=== PATIENT | female | born 1955 | race Caucasian/White ===

== ENCOUNTER 2021-09-17 12:30 | Outpatient (RCR) | payer MEDICARE, BC, SELFPAY | END 2022-09-02 11:14 | disposition home or self-care (01) | PROVIDERS: PCP Family Medicine; Visit Provider Physician Assistant Medical | DX: M79.645 Pain in left finger(s) (principal); M20.002 Unspecified deformity of left finger(s); Z51.89 Encounter for other specified aftercare | CPT/HCPCS: 97035; 97110; X5282 ==

== ENCOUNTER 2021-11-06 04:38 | Emergency (ER) | payer MEDICARE, BC, SELFPAY ==
[2021-11-06 04:49] VITALS: BP 127/74; PULSE 69; RESP 20; TEMP 36.6; O2SAT 99; BMI 17.4
--- NOTE | 2021-11-06 05:26 | ED.DIZZY ---
HPI - Dizziness General Chief Complaint: Dizziness/Vertigo Stated Complaint: Vertigo, lightheaded, weak Time Seen by Provider: 11/06/21 04:43 Source: patient Mode of arrival: ambulatory Limitations: no limitations History of Present Illness HPI Narrative: Patient presents with a 1-1/2 hour history of weakness, feeling of room spinning sensation, buzzing in her head and feeling off balance. She had a similar episode she states 2 years ago that responded well to IV medication therapy in observation admission in the hospital. Review of the records shows that this was in June of 2020. Her symptoms resolved with rest, fluids, meclizine and lorazepam. She does state that she is prone to anxiety. She has been evaluated by her primary care provider recently as she does have some mild spells from time to time and has been diagnosed with the suspicion for Meniere's disease. She has been referred to an ear nose and throat provider, consult is pending next month. She does have a mild headache and has had 1 for a couple of days since receiving her last COVID booster. No trauma, no injury. Headache is diffuse, nonfocal. She tried taking 2 Tylenol for the headache this morning with no improvement in her vertigo symptoms. She has a notable history of a prior stroke following an episode of endocarditis 18 years ago. She subsequently now has a mechanical mitral valve and is anticoagulated on Coumadin long-term. No recent significant changes in her dose. Denies any other focal neurological changes besides the feeling off-balance. No vision changes, no speech changes, no difficulty moving her extremities, no confusion. This is confirmed with her . Denies cardiac symptoms, chest pain. CT scan and MRI were performed 15 months ago at her last similar presentation. These imaging studies, labs and notes are extensively reviewed. Past medical history is most notable for history of endocarditis with subsequent mitral valve replacement. Denies any other surgeries. Her long-term medications are estradiol with Prometrium and Coumadin. She states that she stopped her atorvastatin a couple of weeks ago. I suspect that this is noncontributory. Socially, no pertinent travel, illicit drug use or alcohol intake. Family history reviewed from the [facility] records. MD elicited complaint: vertigo and disequilibrium Pertinent past history: BPPV, stroke and Meniere's disease Related Data Home Medications Medication Instructions Recorded Confirmed atorvastatin 10 mg tablet 10 mg PO HS 11/06/21 11/06/21 estradiol 0.5 mg tablet 0.5 mg PO DAILY 11/06/21 11/06/21 progesterone micronized 100 mg 100 mg PO HS 11/06/21 11/06/21 capsule warfarin 2 mg tablet 2 mg PO DIRECTED 11/06/21 11/06/21 Previous Rx's Medication Instructions Recorded meclizine 12.5 mg tablet 12.5 - 25 mg PO TID PRN vertigo 11/06/21 #20 tabs Allergies Allergy/AdvReac Type Severity Reaction Status Date / Time No Known Drug Allergies Allergy Verified 11/06/21 05:26 Review of Systems Narrative: Notable for the generalized and neurological symptoms as above, otherwise denies times 12 systems. [facility] Medical History Acute and subacute bacterial endocarditis Anticoagulation goal of INR 2.5 to 3.5 Anxiety History of vertigo Hyperlipidemia Lacunar stroke Migraine Tinnitus TMJ (dislocation of temporomandibular joint) Surgical History H/O mitral valve replacement History of nasal septoplasty Social History Smoking Status: Never smoker Do you use any of these nicotine containing products: None How often do you have a drink containing alcohol: never AUDIT-C Alcohol total score: 0 Non-prescribed substance use: denies use Exam Const: Vital Signs, click to edit/add: Vital Signs - 24 hr 11/06/21 04:49 11/06/21 05:45 11/06/21 05:40 Temperature 97.9 F Pulse Rate [Left P ulse Oximeter] 69 71 Respiratory Rate 20 20 Blood Pressure [Le ft Upper Arm] 127/74 131/64 Pulse Oximetry 99 98 98 Oxygen Delivery Me thod Room Air Room Air 11/06/21 06:42 11/06/21 07:01 Temperature 97.9 F Pulse Rate [Left P ulse Oximeter] 66 66 Respiratory Rate 20 20 Blood Pressure [Le ft Upper Arm] 124/54 L 128/62 Pulse Oximetry 98 Oxygen Delivery Me thod Room Air Documenting provider has reviewed patient's vital signs: yes Common normals: no apparent distress and average body habitus General appearance: well kempt Orientation/consciousness: Yes awake, Yes oriented to person, Yes oriented to place and Yes oriented to time; not confused HENMT: Common normals: normocephalic and TM's normal bilaterally Head and scalp: normocephalic Face and sinus: normal facial exam Tympanic membrane: TM's normal bilaterally Mouth: oral and palatal mucosa normal Throat: posterior oropharynx normal Eye: Common normals: PERRL, conjunctivae normal and no scleral icterus Conjunctiva: conjunctiva(e) normal Pupil: PERRL Other: Mild nystagmus to the right, mostly horizontal with a slight rotational aspect. Neck & C-Spine: Common normals: full ROM and no lymphadenopathy Resp: Common normals: normal respiratory effort and clear to auscultation bilaterally Auscultation: clear to auscultation bilaterally Cardio: Common normals: regular rate, regular rhythm, S1 normal heart sound, S2 normal heart sound and peripheral pulses 2+ throughout Rate: regular rate Rhythm: regular rhythm Heart sounds: S1 normal and S2 normal Peripheral pulses: pulses 2+ throughout Other: Mitral murmur consistent with known history of mechanical valve, no leakage sounds GI: Common normals: Normal to inspection, nondistended, normoactive bowel sounds present, soft to palpation, non-tender, no hepatosplenomegaly and no masses Palpation: soft and no hepatosplenomegaly Extremity: General: no deformity and no edema Neuro: Common normals: CN's II-XII intact bilaterally, moves all extremities, no focal motor deficits and no sensory deficits noted Sensorium/orientation: awake, oriented to person, oriented to place and oriented to time Speech: speech normal Motor exam: no tremor noted Other: Maxim-Hallpike maneuver localizes to right ear. Psych: Appearance: well kempt Attitude: engaged Mood and affect: anxious (Mild) Memory/cognition: memory grossly intact Insight: insight good Judgement: judgment good Skin: Common normals: no rashes or lesions noted General skin exam: no rashes or lesions noted Course Vital Signs Vital signs: Initial Vital Signs Temperature 97.9 F 11/06/21 04:49 Temperature Source Temporal Artery Scan 11/06/21 04:49 Pulse Rate 69 11/06/21 04:49 Pulse Rhythm 11/06/21 04:49 Respiratory Rate 20 11/06/21 04:49 Blood Pressure 127/74 09/22/22 04:49 Blood Pressure Mean 91 11/06/21 04:49 Blood Pressure Position Sitting 11/06/21 04:49 Pulse Oximetry 99 11/06/21 04:49 Oxygen Delivery Method 11/06/21 04:49 Vital Signs Temperature 97.9 F 11/06/21 04:49 Pulse Rate 69 11/06/21 04:49 Respiratory Rate 20 11/06/21 04:49 Blood Pressure 127/74 11/06/21 04:49 Pulse Oximetry 99 11/06/21 04:49 Oxygen Delivery Method 11/06/21 04:49 Temperature 97.9 F 11/06/21 07:01 Pulse Rate 66 11/06/21 07:01 Respiratory Rate 20 11/06/21 07:01 Blood Pressure 128/62 11/06/21 07:01 Pulse Oximetry 98 11/06/21 06:42 Oxygen Delivery Method 11/06/21 06:42 MDM - Dizziness MDM Narrative Medical decision making narrative: Discussed differential diagnosis with family including benign positional vertigo, Meniere's disease, stroke, intracranial hemorrhage, labyrinthitis, vestibular neuritis, cardiogenic or behavioral health disorder. Reviewed patient's allergy to prednisone as a mild side effect only. Reviewed previous treatments that were successful for her. Recommended a combination of IV fluid, meclizine, dexamethasone, lorazepam, Zofran. Discussed risks and benefits of repeating cranial imaging. Will check INR, if she does not respond to medication, would recommend CT scan of the head. Laboratory studies pending. Patient agreeable with initial conservative management. Re-examined patient at 6:15 a.m., 30 minutes after medications. She is feeling markedly better. Because of this, I do not recommend additional neurological workup and she is in agreement. Will ambulate patient around in 30 minute and if she does well, we will plan to discharge home. We did discuss continued use of meclizine for the next 24 hours and light activity for today. Alarm symptoms for ED presentation that would warrant additional imaging are reviewed. Her reassuring lab studies were reviewed as well. Medical Records Attestation: I reviewed the patient's medical records. Lab Data Attestation: I reviewed the patient's lab results. Labs: Lab Results 11/06/21 11/06/21 11/06/21 Range/Units 05:29 05:33 05:37 WBC 4.30 L (4.50-11.00) K/uL RBC 4.36 (4.00-5.20) m/uL Hgb 13.0 (12.0-16.0) gm/dL Hct 38.5 (33.0-51.0) % MCV 88 (80-100) fL MCH 30 (26-34) pg MCHC 34 (32-36) gm/dL RDW Coeff of Dajuan 13.1 (11.5-15.5) % Plt Count 209 (140-440) K/uL Neut % (Auto) 60.9 (42.0-72.0) % Lymph % (Auto) 21.9 (20-44) % Chester % (Auto) 12.1 H (0.0-11.0) % Eos % (Auto) 3.7 (0.0-7.0) % Baso % (Auto) 1.4 (0.0-3.0) % Neut # (Auto) 2.60 (1.7-7.0) K/uL Lymph # (Auto) 0.90 (0.90-2.90) K/uL Chester # (Auto) 0.50 (0.00-0.90) K/UL Eos # (Auto) 0.20 (0.00-0.50) K/uL Baso # (Auto) 0.10 (0.00-0.30) K/uL Abs Immat Gran (auto) 0.00 (0.00-0.30) K/uL INR 2.97 H (0.91-1.10) Sodium (135-149) mmol/L Potassium (3.6-5.1) mmol/L Chloride (96-114) mmol/L Carbon Dioxide (20-32) mmol/L BUN (7-30) mg/dL Creatinine (0.5-1.5) mg/dL Estimated Creat Clear Estimated GFR ml/min Glucose (60-115) mg/dL Calcium (8.4-10.6) mg/dL Urine Color (Yellow) Urine Appearance (Clear) Urine pH (5.0-8.5) Ur Specific Treadwell (1.000-1.030) Urine Protein (Negative) Urine Glucose (UA) (Negative) Urine Ketones (Negative) Urine Blood (Negative) Urine Nitrite (Negative) Urine Bilirubin (Negative) Urine Urobilinogen (0.2-1.0) Ur Leukocyte Esterase (Negative) Urine RBC (0-2) Urine WBC (0-5) Ur Squamous Epith Cells (None-Few) Amorphous Sediment (None) Urine Bacteria (None) POC Troponin I 0.00 L (0.01-0.04) ng/ml 11/06/21 11/06/21 Range/Units 05:37 06:05 WBC (4.50-11.00) K/uL RBC (4.00-5.20) m/uL Hgb (12.0-16.0) gm/dL Hct (33.0-51.0) % MCV (80-100) fL MCH (26-34) pg MCHC (32-36) gm/dL RDW Coeff of Dajuan (11.5-15.5) % Plt Count (140-440) K/uL Neut % (Auto) (42.0-72.0) % Lymph % (Auto) (20-44) % Chester % (Auto) (0.0-11.0) % Eos % (Auto) (0.0-7.0) % Baso % (Auto) (0.0-3.0) % Neut # (Auto) (1.7-7.0) K/uL Lymph # (Auto) (0.90-2.90) K/uL Chester # (Auto) (0.00-0.90) K/UL Eos # (Auto) (0.00-0.50) K/uL Baso # (Auto) (0.00-0.30) K/uL Abs Immat Gran (auto) (0.00-0.30) K/uL INR (0.91-1.10) Sodium 137 (135-149) mmol/L Potassium 3.8 (3.6-5.1) mmol/L Chloride 107 (96-114) mmol/L Carbon Dioxide 25 (20-32) mmol/L BUN 19 (7-30) mg/dL Creatinine 0.6 (0.5-1.5) mg/dL Estimated Creat Clear 36.63 Estimated GFR 98 ml/min Glucose 92 (60-115) mg/dL Calcium 9.1 (8.4-10.6) mg/dL Urine Color Yellow (Yellow) Urine Appearance Cloudy A (Clear) Urine pH 7.5 (5.0-8.5) Ur Specific Treadwell 1.015 (1.000-1.030) Urine Protein Negative (Negative) Urine Glucose (UA) Negative (Negative) Urine Ketones Negative (Negative) Urine Blood Negative (Negative) Urine Nitrite Negative (Negative) Urine Bilirubin Negative (Negative) Urine Urobilinogen 0.2 (0.2-1.0) Ur Leukocyte Esterase Negative (Negative) Urine RBC 0-2 (0-2) Urine WBC 0-2 (0-5) Ur Squamous Epith Cells Few (None-Few) Amorphous Sediment Many A (None) Urine Bacteria Moderate A (None) POC Troponin I (0.01-0.04) ng/ml ECG Data Interpretation: Normal sinus rhythm with no significant ST or T-wave abnormalities. There are a few Pac complexes. Good R-wave progression with normal axis. Discharge Plan Discharge Clinical Impression: Benign paroxysmal positional vertigo Patient Disposition: Home w/ Parent or Adult Condition: Improved Instructions: Benign Paroxysmal Positional Vertigo (ED) Additional Instructions: There were no signs of neurological injury or heart problems today. Your physical exam was consistent with vertigo initiating in the right ear. Your symptoms improved significantly with our typical combination of medications. Because of this, I do not recommend that we repeat the CT scan and MRI that were performed last year. I would like for you to continue taking meclizine and rest for today. I will dose the meclizine at 12.5 mg every 8 hours, but you may increase it to 25 mg every 8 hours if this is more successful for you. I have chosen a half dose because of your petite frame. It may cause some dry mouth and constipation, feel free to use a stool softener if needed. Drink lots of fluids for the next couple of days. You were given a dose of dexamethasone which may increase your INR. Please have your INR rechecked on Wednesday. I would like for you to take 12.5 mg of meclizine this afternoon at about 2:00 p.m. and repeat at about 10:00 p.m.. Take another dose tomorrow morning upon awakening. After those 3 doses, you may then take the medication as needed if your still experiencing vertigo symptoms. It can be helpful to eat a diet that is a little higher in salt for the next couple of days to reduce your vertigo symptoms as well. Avoid alcohol and driving until your symptoms have been resolved for at least 24 hours. Come back to the emergency department if you are experiencing any neurological changes associated with the dizziness. Keep your appointment with the specialist for next month. Follow up with her primary care doctor early next week if your symptoms have not resolved. Activity Level: Light activity Discharge Diet: Regular Prescriptions: New meclizine 12.5 mg tablet 12.5 - 25 mg PO TID PRN (Reason: vertigo) Qty: 20 1RF No Action warfarin 2 mg tablet 2 mg PO DIRECTED Label Comments: TAKE BY MOUTH 4MG (2MG X 2 TABLETS) MON, WED AND FRI AND THEN 5MG (2MG X 2.5 TABLETS) ALL OTHER DAYS OR DIRECTED estradiol 0.5 mg tablet 0.5 mg PO DAILY Label Comments: TAKE 1 TABLET BY MOUTH ONCE DAILY progesterone micronized 100 mg capsule 100 mg PO HS Label Comments: TAKE 1 CAPSULE BY MOUTH AT BEDTIME atorvastatin 10 mg tablet 10 mg PO HS Label Comments: TAKE 1 TABLET BY MOUTH EVERYDAY AT BEDTIME Follow Up/Referrals: Shahrzad Rodrigez MD [Primary Care Provider] - Stand Alone Forms: [facility] Info Instructions
--- OUTSIDE RECORDS SUMMARY | 2021-11-06 05:36 | XMS_ITS | Clinical Summary ---
:1955 Author Organization [facility] [place] [address] Care Team Providers Name Role Phone Shahrzad Rodrigez MD Primary Care Provider Allergies Active Allergy Reactions Severity Noted Date Comments Cats (Fur, Dander, 01/22/2010 Saliva) Dog Dander Runny Nose 06/13/2018 Grass Pollen Other - Describe In 06/13/2018 Itchy ey es Comment Field Prednisone Anxiety 01/24/2007 became very hyp ed up Medications Medication Sig Dispensed Refills Start End Date Status Date amoxicillin Prior to 0 Active (AMOXIL) 500 mg procedures 9 capsule fluticasone (50 mcg INSTILL 2 48 mL 3 Active per actuation) SPRAYS INTO 1 nasal solution BOTH NOSTRILS (FLONASE)Indication ONCE DAILY. s: Allergic rhinitis, unspecified seasonality, unspecified trigger estradioL (ESTRACE) Take 1 Tablet 90 Tablet 3 Active 0.5 mg (0.5 mg) by 1 tabletIndications: mouth once Atrophic vaginitis, daily. Menopausal problem progesterone Take 1 Capsule 90 capsule. 3 Active micronized (100 mg) by 1 (PROMETRIUM) 100 mg mouth at capsuleIndications: bedtime. Atrophic vaginitis, Menopausal problem atorvastatin Take 1 Tablet 90 Tablet 0 Act karen (LIPITOR) 10 mg (10 mg) by 2 tabletIndications: mouth at Hyperlipidemia, bedtime. unspecified hyperlipidemia type warfarin (COUMADIN) Take by mouth 0 Active 2 mg 4 mg (2 mg x 2 tabletIndications: 2) every day Hx of mitral valve in the evening replacement with OR as directed mechanical valve, Anticoagulation monitoring, INR range 2.5-3.5 warfarin (COUMADIN) Take by mouth 0 Discontinued 2 mg 6 mg (2 mg x 2 22 (Other - add tabletIndications: 3) every Amisha; note to specify Hx of mitral valve 4 mg (2 mg x (E-cancel not replacement with 2) all other sent)) mechanical valve, days in the Anticoagulation evening OR as monitoring, INR directed range 2.5-3.5 Active Problems Problem Noted Date Lacunar stroke 08/28/2021 Overview: Found incidentally on CT. Advised to be on statin for secondary prevention and aim for blood pressure at 120/70 Protein-calorie malnutrition, unspecified severity Bilateral sensorineural hearing loss 02/05/2017 Dyspareunia in female 01/21/2017 Hyperlipidemia 01/21/2017 Otorrhagia of right ear 12/03/2016 Traumatic hematoma of right ear 12/03/2016 Anticoagulation monitoring, INR range 2.5-3.5 06/06/19 16 Osteopenia 12/21/2011 Hx of migraines 07/26/2011 Anxiety state, unspecified 07/26/2011 Leg pain 02/08/2011 Screen for colon cancer 06/06/2010 Overview: Colonoscopy 04/2010 normal repeat in 10 y ears Tinnitus of both ears 12/13/2008 Overview: Consult with ENT 2007 MRI 01/21 MITRAL VALVE DISEASES 07/27/2006 Hx of mitral valve replacement with mechanical valve 0 06/29/2006 Overview: Mitral valve replacement Personal history of surgery to heart and great vessels , presenting hazards 2003 to health Allergic rhinitis, cause unspecified Resolved Problems Problem Noted Date Resolved Date Anticoagulation monitoring, INR range 2.5-3.5 07/05/2013 05/29/2015 Anemia, unspecified 02/08/2011 01/21/2017 Elevated INR 02/08/2011 07/26/2011 Annual physical exam 12/15/2007 07/26/2011 Overview: LMP menopause Last Pap 12/09/06 Result WNL Last Mammo 01/14/07 Last Colonoscopy Never Last DEXA 06/17/04 Last Td 12/28/03 . Headache(784.0) 01/27/2007 12/13/2008 Headache(784.0) 01/27/2007 07/14/2012 Encounter for long-term (current) use of anticoagulants 06/1507/05/2013 Overview: Goal range 2.5 To 3.5 Other ill-defined and unknown causes of morbidity and mortal ity 05/30/2003 12/13/2008 Other and unspecified mitral valve diseases 07/14/2012 Encounters Date Type Specialty Care Team Description 10/27/2021 Office Visit Shahrzad Rodrigez Follow Up; Tatiana Chamorro MD Pressure; Medic ation Management; Con cerns (Light headedne ss, concerned for l ow BP) 10/27/2021 Anticoagulation 1, [facility] 10/27/2021 Travel 10/16/2021 Orders Only Lab, [facility] Antico[facility] 10/16/2021 Anticoagulation 1, [facility] 10/16/2021 Travel 10/05/2021 Orders Only Shahrzad Rodrigez <No scans attac hed> MD [place] 10/02/2021 Orders Only Lab, [facility] Antico[facility] 10/02/2021 Telephone Shahrzad Rodrigez Anticoagulation (PCP MD [place] Dose approval) 10/02/2021 Telephone Shahrzad Rodrigez Error-please юлия Chamorro MD (Signed by shivam burton) 10/02/2021 Anticoagulation 1, [facility] 10/02/2021 Travel 09/24/2021 Telephone Shahrzad Rodrigez Anticoagulation (Annual MD [place] re-enrollment ) 08/26/2021 Anticoagulation 1, [facility] 08/25/2021 Office Visit Shahrzad Rodrigez Ankle Pain/prob damon Chamorro MD (weakness, righ t ankle, rolling to righ t); Medication List Update ([facility] ) 08/25/2021 Orders Only Lab, [facility] Anticoagulation 08/25/2021 Travel from Last 3 Months Immunizations Name Administration Dates Next Due AMB Influenza, IIV4 PF (=>6 mos 11/14/2013 Flulaval,Fluzone Fluarix)(Flu Clinic Only) COVID-19 vaccine (Moderna 12/09/2020, 05/10/2020, 04/12/2020 100mcg/0.5mL) PF, MDV DT (Age < 7 years) 10/05/1985 Hepatitis B (Adult) 06/15/1996, 10/27/1995, 09/30/1995 Influenza A (H1N1), Inactivated 02/26/2009 Influenza, High-dose Inactivated 11/16/2018 Influenza, IIV3 (Age >=3 years) 11/27/2015, 11/26/2012, 05/2011, 11/20/2010, 12/12/2009, 12/12/2007, 11/19/2005, 12/12/2003, 11/16/2003 Influenza, IIV4 10/27/2016, 11/14/2013, 11/26/2012 Influenza, IIV4 (=>6mos) MDV 11/17/2017, 11/08/2014 Influenza, Inactivated AIIV4 (Age 65+ 10/28/2020, 10/30/2019 Years) Preserv Free Influenza, Intradermal Inactivated 11/20/2014, 11/19/2011 Pneumococcal Poly,23-Valent 01/29/2020, 11/21/2003 (Pneumovax) Pneumococcal conj 13-Valent (Prevnar 01/25/2019 13) Td (Age >=7 Years) 12/28/2003, 10/01/1994 Tdap 11/19/2011 Zoster (Shingrix-RZV, recombinant) 07/28/2018, 04/18/2018 Zoster (Zostavax-ZVL, live) 09/05/2013, 01/08/2013 Family History Medical History Relation Name Comments Arthritis Brother Cancer-prostate Father Osteoporosis Mother Stroke Mother Cancer-breast No Family History Cancer-ovarian No Family History Relation Name Status Comments Brother Father Mother Social History Tobacco Use Types Packs/Day Years Used Date Never Smoker Smokeless Tobacco: Never Used Tobacco Cessation: Counseling Given: Yes Alcohol Use Standard Drinks/Week Comments No 0 (1 standard drink = 0.6 oz pure alcoho l) Sex Assigned at Date Recorded Not on file COVID-19 Exposure Response Date Recorded In the last 10 days, have you been in contact with No / Unsu re 10/27/2021 7:26 AM CDT someone who was confirmed or suspected to have Coronavirus/COVID-19? Obstetrics History Para Term AB IAB SAB Ectopic Multiple Living Live Births 0 0 0 0 0 0 0 0 0 Last Filed Vital Signs Vital Sign Reading Time Taken Comments Blood Pressure 117/70 10/27/2021 7:40 AM CDT Pulse 89 10/27/2021 7:40 AM CDT Temperature 36.7 ??C (98 ??F) 07/10/2021 8:52 AM CDT Respiratory Rate 14 11/27/2020 1:32 PM CDT Oxygen Saturation 100% 10/27/2021 7:33 AM CDT Inhaled Oxygen Concentration - - Weight 43.5 kg (95 lb 14.4 oz) 10/27/2021 7:33 AM CDT Height 158.6 cm (5' 2.44) 08/25/2021 2:36 PM CDT Body Mass Index 17.29 08/25/2021 2:36 PM CDT Plan of Treatment Upcoming Encounters Date Type Specialty Care Team Description 11/11/2021 Orders Only Lab, [facility] 11/17/2021 Office Visit Pat Duron AuD [address] [place], [place] [address] (Wo rk) 11/17/2021 Office Visit Cristina Rivers PA [address] [place], [place] [address] (Wo rk) 02/02/2022 Office Visit Shahrzad Rodrigez MD [address] [facility] [id number] (Wo [facility]) Health Maintenance Due Date Last Done Comments Influenza for age 65+ 10/16/2021 10/28/2020, 10/30/2019, 11/16/2018, Additional history exists Tetanus booster 11/18/2021 11/19/2011, 12/28/2003, 10/01/1994 Depression screening for age 12+ 01/30/2022 01/30/2021, , 01/16/2021, Additional history exists Medicare Wellness for age 65+ 01/30/2022 01/30/2021, 2019, 01/25/2019 Mammogram for age 45-75 02/13/2022 02/13/2021, 01/29/2020, 01/25/2019, Additional history exists BMI (ht and wt on same day) for 08/25/2022 08/25/2021, 04/16, age 18+ 01/30/2021, Additional history exists Fecal testing sDNA-FIT (Cologuard) 10/04/2023 10/03/2020 for age 45-75 Lipids for age 45-75 10/02/2026 10/02/2021, 09/25/2020, 01/24/2018, Additional history exists Tdap Completed 11/19/2011 Zoster (shingles) series for age Completed 07/28/2018, 05/2018, 50+ 09/05/2013, Additional history exists DEXA/DXA scan for age 65+ Completed 12/04/2019, 02/02/2017 , 12/26/2013, Additional history exists Pneumococcal series for age 65+ Completed 01/29/2020, 01/15, 11/21/2003 Hepatitis C screening for age Completed 05/08/2021, 2018 18-79 COVID-19 vaccine series Completed 2021, 12/09/2020, 05/10/2020, Additional history exists Procedures Procedure Name Priority Date/Time Associated Diagnosis Comme nts CBC WITH AUTO Routine 10/27/2021 8:23 Intermittent Results for this DIFFERENTIAL AM CDT lightheadedness procedure ar e in the results section. COMP METABOLIC PANEL Routine 10/27/2021 8:23 Intermittent Resu lts for this AM CDT lightheadedness procedure ar e in the results section. CBC WITH AUTO Routine 10/27/2021 8:23 Intermittent Results for this DIFFERENTIAL AM CDT lightheadedness procedure ar e in the results section. PROTIME-INR STAT 10/27/2021 8:23 Hx of mitral valve Result s for this AM CDT replacement with procedure a re in mechanical valve the results section. INR,POCT Routine 10/16/2021 10:39 Hx of mitral valve Resul ts for this AM CDT replacement with procedure a re in mechanical valve the results section. LIPID PANEL W REFLEX Routine 10/02/2021 10:46 Hyperlipidemia, Results for this MEASURED LDL AM CDT unspecified procedure are i n hyperlipidemia type the resu lts section. HEPATIC FUNCTION Routine 10/02/2021 10:46 Hyperlipidemia, Resu lts for this PANEL AM CDT unspecified procedure are i n hyperlipidemia type the resu lts section. INR,POCT Routine 10/02/2021 10:45 Hx of mitral valve Resul ts for this AM CDT replacement with procedure a re in mechanical valve the results section. INR,POCT Routine 08/25/2021 2:17 Hx of mitral valve Result s for this PM CDT replacement with procedure a re in mechanical valve the results section. from Last 3 Months Results (ABNORMAL) CBC WITH AUTO DIFFERENTIAL (10/27/2021 8:23 AM CDT) [facility] Method Time Signature WHITE BLOOD 5.4 4.5 - 10/27/2021 [facility] COUNT 11.0 8:31 AM CDT [facility]/ CLINIC mm RED BLOOD COUNT 4.68 4.00 - 10/27/2021 [facility] 5.20 8:31 AM CDT [facility]/count includes the [facility] CLINIC HEMOGLOBIN 14.1 12.0 - 10/27/2021 [facility] 16.0 g/dL 8:31 AM T [facility] HEMATOCRIT 41.8 33.0 - 10/27/2021 [facility] 51.0 % 8:31 AM CDT [facility] MCV 89 80 - 100 10/27/2021 [facility] fL 8:31 AM CDT [facility] MCH 30.1 26.0 - 10/27/2021 [facility] 34.0 pg 8:31 AM CDT [facility] MCHC 33.7 32.0 - 10/27/2021 [facility] 36.0 g/dL 8:31 AM CDT [facility] RDW 14.3 11.5 - 10/27/2021 [facility] 15.5 % 8:31 AM CDT [facility] PLATELET COUNT 232 140 - 440 10/27/2021 [facility] thou/cu 8:31 AM CDT [facility] MPV 11.5 (H) 6.5 - 10/27/2021 [facility] 11.0 fL 8:31 AM CDT [facility] NEUTROPHILS 66.2 % 10/27/2021 [facility] 8:31 AM CDT [facility] LYMPHOCYTES 20.5 % 10/27/2021 [facility] 8:31 AM CDT [facility] MONOCYTES 9.8 % 10/27/2021 [facility] 8:31 AM CDT [facility] EOSINOPHILS 2.4 % 10/27/2021 [facility] 8:31 AM CDT [facility] BASOPHILS 1.1 % 10/27/2021 [facility] 8:31 AM CDT [facility] ABSOLUTE 3.6 1.7 - 7.0 10/27/2021 [facility] NEUTROPHILS thou/cu 8:31 AM CDT [facility] ABSOLUTE 1.1 0.9 - 2.9 10/27/2021 [facility] LYMPHOCYTES thou/cu 8:31 AM CDT [facility] ABSOLUTE 0.5 <0.9 10/27/2021 [facility] MONOCYTES thou/cu 8:31 AM CDT [facility] ABSOLUTE 0.1 <0.5 10/27/2021 [facility] EOSINOPHILS thou/cu 8:31 AM CDT [facility] ABSOLUTE 0.1 <0.3 10/27/2021 [facility] BASOPHILS thou/cu 8:31 AM CDT [facility] Specimen Anatomical Collection Method Collection Time Receive d Time (Source) Location / / Volume Laterality Blood BLOOD SPECIMEN / [facility] / 10/27/2021 8:23 AM 10/27 8:27 Unknown Unknown CDT AM CDT Shahrzad Rodrigez MD HEMATOLOGY Performing Organization Address City/State/ZIP Code Phon e Number [facility] [address] [place] [address] (ABNORMAL) PROTIME-INR (10/27/2021 8:23 AM CDT) P athologist Signature INR 3.6 (H) <1.3 10/27/2021 [facility] 2:18 PM CDT LABORATORY-[facility] PROTIME 34.0 (H) 12.0 - 13.8 10/27/2021 [facility] sec 2:18 PM CDT LABORATORY-[facility] LAB[facility] Specimen Anatomical Collection Method Collection Time Receive d Time (Source) Location / / Volume Laterality Blood BLOOD SPECIMEN / [facility]fly / 10/27/2021 8:23 AM 10/27 8:27 Unknown Unknown CDT AM CDT Narrative [facility] LAB[facility]AT[facility] - 10/27/2021 2:18 PM CDT ?Therapeutic Range 2.0-3.0 for most anticoagulated patients 2.5-3.5 or 4.0 for high risk patients The INR is only used for patients on sta ble oral anticoagulant therapy. It makes no significant contribution to the diagnosis or treatment of patients whose Protime is prolonged f or other reasons. INR results are increased when heparin l evels exceed 1.0 U/mL, which corresponds to an aPTT >125 seconds if the patient is on UFH. Shahrzad Rodrigez MD HEMATOLOGY Performing Organization Address City/State/ZIP Code Phon e Number [facility] [address] [place] [address] LABORATORY-[facility] [address] LAB[facility]AT[facility] (ABNORMAL) COMP METABOLIC PANEL (10/27/2021 8:23 AM CDT) Analysis Performed At Patho logist Time Signature SODIUM 140 135 - 145 10/27/2021 [facility] mmol/L 8:21 PM CDT [facility] POTASSIUM 4.1 3.5 - 5.0 10/27/2021 [facility] mmol/L 8:21 PM CDT [facility] CHLORIDE 107 98 - 110 10/27/2021 [facility] mmol/L 8:21 PM CDT [facility] CO2,TOTAL 26 21 - 31 10/27/2021 [facility] mmol/L 8:21 PM CDT [facility] ANION GAP 7 5 - 18 10/27/2021 [facility] 8:21 PM CDT [facility] GLUCOSE 86 65 - 100 10/27/2021 [facility] mg/dL 8:21 PM CDT [facility] CALCIUM 9.5 8.5 - 10.5 10/27/2021 [facility] mg/dL 8:21 PM CDT [facility] BUN 18 8 - 25 10/27/2021 [facility] mg/dL 8:21 PM CDT [facility] CREATININE 0.81 0.57 - 10/27/2021 [facility] 1.11 mg/dL 8:21 PM CDT [facility] BUN/CREAT RATIO 22 (H) 10 - 20 10/27/2021 [facility] 8:21 PM CDT [facility] ALBUMIN 4.3 3.2 - 4.6 10/27/2021 [facility] g/dL 8:21 PM CDT [facility] PROTEIN,TOTAL 7.0 6.0 - 8.0 10/27/2021 [facility] g/dL 8:21 PM CDT [facility] GLOBULIN 2.7 2.0 - 3.7 10/27/2021 [facility] g/dL 8:21 PM CDT [facility] A/G RATIO 1.6 1.0 - 2.0 10/27/2021 [facility] 8:21 PM CDT [facility] BILIRUBIN,TOTAL 0.6 0.2 - 1.2 10/27/2021 [facility] mg/dL 8:21 PM CDT [facility] ALK PHOSPHATASE 69 50 - 136 10/27/2021 [facility] IU/L 8:21 PM CDT [facility] ALT (SGPT) 51 (H) 8 - 45 10/27/2021 [facility] IU/L 8:21 PM CDT [facility] AST (SGOT) 53 (H) 2 - 40 10/27/2021 [facility] IU/L 8:21 PM CDT [facility] eGFR 79 (L) >90 10/27/2021 [facility] mL/min/1.7 8:21 PM CDT [facility]ATORY[facility] 3m2 TRAL LAB[facility]ATORY Comment: As of 2021, eGFR is calcu lated by the CKD-EPI creatinine equation without race adjustment. eGFR can be inf luenced by muscle mass, exercise, and diet. The reported eGFR is an estimation only and is only applicable if the renal function is stable. Specimen Anatomical Collection Method Collection Time Receive d Time (Source) Location / / Volume Laterality Blood BLOOD SPECIMEN / [facility] / 10/27/2021 8:23 AM 10/27 8:27 Unknown Unknown CDT AM CDT Shahrzad Rodrigez MD CHEMISTRY Performing Organization Address City/State/ZIP Code Phon e Number [facility] [address] [place] [address] LABORATORY-[facility] [address] LAB[address]ATORY (ABNORMAL) INR,POCT (10/16/2021 10:39 AM CDT)Only the most recent of3 results within the time period is included. P athologist Signature INR 3.3 (H) <1.3 10/16/2021 [facility] 10:44 AM CDT [facility] Specimen Anatomical Collection Method Collection Time Receive d Time (Source) Location / / Volume Laterality Blood BLOOD SPECIMEN / 10/16/2021 10:39 022 Unknown AM CDT 10:43 AM CDT Narrative [facility] - 2021 10:44 AM CDT ?Therapeutic Range 2.0-3.0 for most anticoagulated patients 2.5-3.5 or 4.0 for high risk patients Shahrzad Rodrigez MD LABORATORY Performing Organization Address City/State/ZIP Code Phon e Number [facility] [address] [place] [address] LIPID PANEL W REFLEX MEASURED LDL (10/02/2021 10:46 AM CDT) Patholo gist Method Time Signature CHOLESTEROL,TOTAL 186 100 - 199 10/02/2021 [facility] mg/dL 5:18 PM CDT [facility] TRIGLYCERIDES 58 <150 10/02/2021 [facility] mg/dL 5:18 PM CDT [facility] HDL CHOLESTEROL 81 >40 mg/dL 10/02/2021 [facility] 5:18 PM CDT [facility] NON-HDL 105 <145 10/02/2021 [facility] CHOLESTEROL mg/dl 5:18 PM CDT [facility] CHOL/HDL RATIO 2.30 <4.50 10/02/2021 [facility] 5:18 PM CDT [facility] LDL CHOLESTEROL 93 <=130 10/02/2021 [facility] mg/dL 5:18 PM CDT [facility] VLDL CHOLESTEROL 12 <=30 10/02/2021 [facility] mg/dL 5:18 PM CDT [facility] PROVIDER ORDERED RANDOM 10/02/2021 [facility] STATUS 5:18 PM CDT [facility] Specimen Anatomical Collection Method / Collection Time Recei tom Time (Source) Location / Volume Laterality Blood BLOOD SPECIMEN / Venipuncture / 10/02/2021 10:46 10/02 Unknown Unknown AM CDT 10:46 AM CDT Shahrzad Rodrigez MD CHEMISTRY Performing Organization Address City/State/ZIP Code Phon e Number [facility] [id number] [place] [address] [place] [address] LABORATORY-[facility] [address] LAB[address]ATORY (ABNORMAL) HEPATIC FUNCTION PANEL (10/02/2021 10:46 AM CDT) Analysis Performed At Patho logist Time Signature ALBUMIN 4.2 3.2 - 4.6 10/02/2021 [facility] g/dL 5:18 PM CDT [facility] PROTEIN,TOTAL 6.9 6.0 - 8.0 10/02/2021 [facility] g/dL 5:18 PM CDT [facility] GLOBULIN 2.7 2.0 - 3.7 10/02/2021 [facility] g/dL 5:18 PM CDT [facility] A/G RATIO 1.6 1.0 - 2.0 10/02/2021 [facility] 5:18 PM CDT [facility] BILIRUBIN,TOTAL 0.6 0.2 - 1.2 10/02/2021 [facility] mg/dL 5:18 PM CDT [facility] BILIRUBIN,DIRECT 0.2 0.1 - 0.5 10/02/2021 [facility] mg/dL 5:18 PM CDT [facility] BILIRUBIN,INDIRE 0.4 0.2 - 0.8 10/02/[address] [facility] [address] mg/dL 5:18 PM CDT [facility] ALK PHOSPHATASE 78 50 - 136 10/02/2021 [facility] IU/L 5:18 PM CDT [facility] ALT (SGPT) 41 8 - 45 10/02/2021 [facility] IU/L 5:18 PM CDT [facility] AST (SGOT) 51 (H) 2 - 40 10/02/2021 [facility] IU/L 5:18 PM CDT [facility] Specimen Anatomical Collection Method / Collection Time Recei tom Time (Source) Location / Volume Laterality Blood BLOOD SPECIMEN / Venipuncture / 10/02/2021 10:46 10/02 Unknown Unknown AM CDT 10:46 AM CDT Shahrzad Rodrigez MD CHEMISTRY Performing Organization Address City/State/ZIP Code Phon e Number [facility] [address] [place] [address] LABORATORY-[facility] [address] LABORATORY from Last 3 Months Insurance Payer Benefit Plan / Subscriber ID Effective Dates Phone Addre ss Type Group MEDICARE PART B MEDICARE PART B [id number] 2018-Presen ATTN: CLAIMS - HB USE ONLY HB ONLY t [address] [place] [address] MEDICARE PART A MEDICARE PART A [id number] 2018-Presen ATTN: CLAIMS - HB USE ONLY HB ONLY t [address] [place] [address] [employer]OSS BLUE CROSS [id number] 2018-[place]en [address] [address] [address] [place], [place] ONLY [id number] BLUE CROSS [place] BLUE CROSS [id number] 2018-Presen [address] [address] [address] [place], [place] ONLY [id number] Advance Directives Documents on File Type Date Recorded Patient Admissions Officer Explanati on Healthcare Directive 04/24/2021 11:47 AM Latest Code Status on File Code Status Date Activated Date Inactivated Comments Full Code 02/06/2011 7:04 PM 02/09/2011 2:28 PM Care Teams Inspector Filters Relationship Specialty Start Date End Date Shahrzad Rodrigez MD PCP - General 06/18/05 [address] [place] [id number]
--- OUTSIDE RECORDS SUMMARY | 2021-11-06 05:36 | XMS_ITS | Encounter Summary ---
:1955 Author Organization [facility] Address [address] [place] [address] Care Team Providers Name Role Phone Unavailable Primary Care Provider Unavailable Encounter Details Date Type Department Care Team Description 04/01/2020 Travel Social History Tobacco Use Types Packs/Day Years Used Date Smoking Tobacco: Never Assessed Sex Assigned at Date Recorded Not on file COVID-19 Exposure Response Date Recorded In the last month, have you been in contact Unable to assess 04/01/2020 8:42 AM PST with someone who was confirmed or suspected to have Coronavirus / COVID-19? documented as of this encounter Plan of Treatment Not on filedocumented as of this encounter Visit Diagnoses Not on filedocumented in this encounter
--- OUTSIDE RECORDS SUMMARY | 2021-11-06 05:36 | XMS_ITS | Clinical Summary ---
:1955 Author Organization [facility] Address [address] [place] [address] Care Team Providers Name Role Phone Unavailable Primary Care Provider Unavailable Source Comments PLEASE NOTE, if this patient is a minor, it may be UNLAWFUL to discuss sensitive information that iscontained in these records (such as FAMILY PLANNING, MENTAL HEALTH or SUBSTANCE ABUSE) with the minor patient's parent or other person without the patient's specific authorization.[facility] Social History Tobacco Use Types Packs/Day Years Used Date Smoking Tobacco: Never Assessed Sex Assigned at Date Recorded Not on file Plan of Treatment Not on file
[2021-11-06] MEDS: 0.9 % SODIUM CHLORIDE 500 ML 500 ML IV (05:39)
[2021-11-06 05:40] VITALS: BP 131/64; PULSE 71; RESP 20; O2SAT 98
[2021-11-06] MEDS: ONDANSETRON 2 MG/ML inj 4 MG IVP (05:40)
[2021-11-06] MEDS: dexAMETHasone 4 MG/ML VIAL 2 MG IV (05:41)
[2021-11-06 05:42] LABS: Basophils Percent Auto 1.4 % (0.0-3.0); Eosinophils Percent Auto 3.7 % (0.0-7.0); Hematocrit 38.5 % (33.0-51.0); Lymphocytes Percent Auto 21.9 % (20-44); Mean Corpuscular HGB Conc 34 gm/dL (32-36); Mean Corpuscular Hemoglobin 30 pg (26-34); Mean Corpuscular Volume 88 fL (80-100); Monocytes Percent Auto 12.1 % (0.0-11.0); Neutrophils Percent Auto 60.9 % (42.0-72.0); Platelet Count* 209 K/uL (140-440); RDW Coefficient of Variation % 13.1 % (11.5-15.5); Red Blood Count 4.36 m/uL (4.00-5.20)
[2021-11-06 05:43] LABS: Slide Review Reflex No
[2021-11-06] MEDS: MECLIZINE HCL 25 MG TABLET PO (05:43)
[2021-11-06] MEDS: LORazepam 2 MG/ML inj 0.5 MG IVP (05:44)
[2021-11-06 05:45] VITALS: O2SAT 98
[2021-11-06 05:54] LABS: Chloride* 107 mmol/L (96-114); Potassium* 3.8 mmol/L (3.6-5.1); Sodium* 137 mmol/L (135-149)
[2021-11-06 05:56] LABS: Creatinine* 0.6 mg/dL (0.5-1.5); Est. Creatinine Clearance* 36.63; Estimated Glomerular Filt Rate 98 ml/min
[2021-11-06 05:57] LABS: Blood Urea Nitrogen* 19 mg/dL (7-30); Calcium* 9.1 mg/dL (8.4-10.6); Carbon Dioxide* 25 mmol/L (20-32); Glucose* 92 mg/dL (60-115)
[2021-11-06 06:12] LABS: Appearance Urine Cloudy (Clear); Bilirubin Urine Negative (Negative); Blood Urine Negative (Negative); Color Urine Yellow (Yellow); Glucose Urine Negative (Negative); Ketones Urine Negative (Negative); Leukocyte Esterase Urine Negative (Negative); Nitrite Urine Negative (Negative); Protein Urine Negative (Negative); Specific Gravity Urine 1.015 (1.000-1.030); Urobilinogen Urine 0.2 (0.2-1.0); pH Urine 7.5 (5.0-8.5)
[2021-11-06 06:20] LABS: RBC Urine 0-2 (0-2)
[2021-11-06 06:21] LABS: Amorphous Sediment Urine Many; Bacteria Urine Moderate; Squamous Epithelial Cell Urine Few (None-Few); WBC Urine 0-2 (0-5)
--- NOTE | 2021-11-06 06:41 | ED.NURSE ---
patient states relief of pain/dizziness.
[2021-11-06 06:42] VITALS: BP 124/54; PULSE 66; RESP 20; O2SAT 98
[2021-11-06 06:46] LABS: INR 2.97 (0.91-1.10); Prothrombin Time 31.2 Seconds
--- NOTE | 2021-11-06 06:53 | ED.NURSE ---
pt walked lap around nursing stating in ER, denies any verigo, pt states relief and states ready to discharge to home.
[2021-11-06 07:01] VITALS: BP 128/62; PULSE 66; RESP 20; TEMP 36.6
== END 2021-11-06 07:02 | disposition home or self-care (01) ==
PROVIDERS: Emergency Provider Family Medicine; PCP Family Medicine
DX: H81.10 Benign paroxysmal vertigo, unspecified ear (principal)
CPT/HCPCS: 36415; 80048; 81003; 81015; 84484; 85025; 85610; 87086; 93005; 94761; 96361; 96374; 96375; 99283; 99284; A9270; J1100; J2060; J2405; J7120